=== PATIENT | female | born 1955 | race Caucasian/White ===

== ENCOUNTER → 2021-09-27 | Outpatient (CLI) | payer MEDICARE, OTHER ==
--- NOTE | 2021-09-27 09:59 | KCIC ---
EXAM: Bilateral digital screening mammogram with tomosynthesis. HISTORY: 66-year-old female presents for screening mammography. TECHNIQUE: Full-field digital craniocaudal and mediolateral oblique 2D and 3D tomosynthesis images of both breasts are obtained for evaluation. Computer aided detection was applied. COMPARISON: There is no recent prior study for comparison. This exam serves as a new baseline mammogr am. BREAST PARENCHYMAL DENSITY: Level B - Scattered fibroglandular densities. FINDINGS: There is no suspicious mass, microcalcification or region of architectural distortion. IMPRESSION: BI-RADS Category 2: Benign finding(s). RECOMMENDATION: Annual mammography is recommended. If your mammogram demonstrates that you have dense breast tissue, which could hide abnormalities, and if you have other risk factors for breast cancer that have been identified, you might benefit from s upplemental screening tests that may be suggested by your ordering physician. Dense breast tissue, i n and of itself, is a relatively common condition. This information is not provided to cause undue c oncern, but rather to raise your awareness and to promote discussion with your physician regarding th e presence of other risk factors, in addition to dense breast tissue. A report of your mammography re sults will be sent to you and your physician. You should contact your physician if you have any ques tions or concerns regarding this report. Mammography is a sensitive method for finding small breast cancers, but it does not detect them all a nd is not a substitute for careful clinical examination. A negative mammogram does not negate a clin ically suspicious finding and should not result in delay in biopsying a clinically suspicious abnorma lity. PQRS compliance statement - Patient information was entered into a reminder system with a target due date for the next mammogram. "Our facility is accredited by the [employer] Mammography [employer]." Electronically signed by: Destiny Michelle MD (09/27/2021 9:56 AM) [facility]
--- NOTE | 2021-09-27 15:17 | KCIC ---
Ultrasound of the abdomen 09/27/2021 CLINICAL HISTORY: Elevated alkaline phosphatase. Disorder of bilirubin metabolism. TECHNIQUE: A real-time ultrasound examination of the abdomen was performed. Multiple images were obta ined. FINDINGS: The gallbladder is well-distended. No gallstones are visualized. The gallbladder wall thick ness is within normal limits. No pericholecystic fluid is seen. The common bile duct measures 4 mm in diameter which is within normal limits. The liver is normal in size measuring 13.9 cm in length. No focal abnormality of liver is seen. The spleen is normal in size measuring 10.4 cm in length. Both ki dneys are within normal limits in size. The right kidney measures 11.1 cm in length. The left kidney measures 10.2 cm in length. A 2 cm simple cyst is seen projecting inferiorly from the lower pole of t he right kidney. No focal abnormality of the left kidney is seen. There is no evidence of hydronephro sis. The pancreas is not well-visualized due to overlying bowel gas. The abdominal aorta tapers normally. The inferior vena cava is within normal limits. No free fluid is seen. IMPRESSION: Negative study. Electronically signed by: Bebo Mcmahon MD (09/27/2021 3:15 PM) [id number]
== END ==
LOC: KCIC MAMMO 08:50
PROVIDERS: ATTEND Internal Medicine
DX: Z12.31 Encounter for screening mammogram for malignant neoplasm of breast (principal); N28.1 Cyst of kidney, acquired; E80.7 Disorder of bilirubin metabolism, unspecified; R74.8 Abnormal levels of other serum enzymes; K82.8 Other specified diseases of gallbladder
CPT/HCPCS: 76700; 77063; 77067